=== PATIENT | female | born 1970 | race Caucasian/White ===

== ENCOUNTER → 2016-12-25 | Outpatient (CLI) | payer MEDICAID | END | disposition home or self-care (01) | LOC: RAD 09:59 | PROVIDERS: ATTEND Internal Medicine Gastroenterology | DX: Z51.89 Encounter for other specified aftercare (principal); R13.14 Dysphagia, pharyngoesophageal phase; R10.9 Unspecified abdominal pain; R14.0 Abdominal distension (gaseous); R11.0 Nausea; R11.10 Vomiting, unspecified; R05 Cough; F41.9 Anxiety disorder, unspecified; Q24.9 Congenital malformation of heart, unspecified; I34.0 Nonrheumatic mitral (valve) insufficiency; K56.1 Intussusception; D50.9 Iron deficiency anemia, unspecified | CPT/HCPCS: 74230 ==

== ENCOUNTER 2017-05-17 18:07 | Emergency (ER) | payer MEDICAID ==
[~2017-05-17] VITALS: Ht 167.6 cm; Wt 79.8 kg
[2017-05-17] MEDS ORDERED: SODIUM CHLORIDE FLUSH 10ML SYR IVF ONE (18:30)
[2017-05-17 18:45] LABS: HEMATOCRIT 47.4 % (34.6-47.8); HEMOGLOBIN 15.7 g/dL (11.7-16.4); WHITE BLOOD COUNT 8.7 x10^3/uL (3.4-10)
[2017-05-17 18:54] LABS: BLOOD UREA NITROGEN 14 mg/dL (7-18)
[2017-05-17 19:00] LABS: ASPARTATE AMINO TRANSFERASE 24 U/L (15-37); IS PT STATUS REG ER OR PRE ER? YES
[2017-05-17 20:18] VITALS: BP 157/86
== END 2017-05-17 21:26 | disposition home or self-care (01) ==
LOC: ED 21:20
DX: R07.89 Other chest pain (principal); F41.1 Generalized anxiety disorder
CPT/HCPCS: 36415; 71010; 80053; 83880; 84484; 85025; 93005; 99285

== ENCOUNTER 2020-12-02 13:50 | Outpatient (CLI) | payer MEDICAID ==
[2020-12-02] MEDS ORDERED: FURO-93 PO (14:34)
[2020-12-02] MEDS ORDERED: TRAZ50TA66 PO (14:34)
[2020-12-02] MEDS ORDERED: POTA20TA6 PO (14:34)
[2020-12-02] MEDS ORDERED: LOSA100T14 PO (14:34)
[2020-12-02] MEDS ORDERED: CARV12.52 PO (14:34)
[2020-12-02] MEDS ORDERED: ASPI81TA45 PO (14:34)
[2020-12-02] MEDS ORDERED: HYDR-826 PO (14:34)
[2020-12-02] MEDS ORDERED: BUSP5TAB2 PO (14:34)
[2020-12-02] MEDS ORDERED: TOLT2TAB4 PO (14:34)
[2020-12-02] MEDS ORDERED: DULO30CA2 PO (14:34)
[2020-12-02] MEDS ORDERED: FERR324T5 PO (14:34)
[2020-12-02 14:53] LABS: BASOPHILS % (AUTO) 1 % (0-1); EOSINOPHILS % (AUTO) 3 % (1-7); LYMPHOCYTES % (AUTO) 27 % (22-44); MEAN CORPUSCULAR HEMOGLOBIN 25.9 pg (27.0-34.8); MEAN CORPUSCULAR HGB CONC 32.7 g/dL (32.4-35.8); MEAN PLATELET VOLUME 9.1 fL (7.4-10.4); MONOCYTES % (AUTO) 6 % (2-9); NEUTROPHILS % (AUTO) 64 % (42-75); PLATELET COUNT 280 x10^3/uL (130-400); RED BLOOD COUNT 6.15 x10^6/uL (3.82-5.3); RED CELL DISTRIBUTION WIDTH 16.3 % (9.6-15.2)
[2020-12-02 14:54] LABS: MD NO
[2020-12-02 14:59] LABS: ALANINE AMINOTRANSFERASE 41 U/L (12-78); ANION GAP 8 mmol/L (5-15); CALCIUM 8.5 mg/dL (8.5-10.1); CHLORIDE 108 mmol/L (98-107)
[2020-12-02 15:01] LABS: ALKALINE PHOSPHATASE 140 U/L (45-117); BILIRUBIN,TOTAL 0.3 mg/dL (0.2-1.0); TOTAL PROTEIN 7.8 g/dL (6.4-8.2)
[2020-12-02 15:21] LABS: INTERNATIONAL NORMALIZED RATIO 1.01 (0.93-1.1); PROTHROMBIN TIME 10.8 Seconds (9.6-11.5)
== END 2020-12-02 23:59 | disposition home or self-care (01) ==
LOC: STAR 13:50
PROVIDERS: ATTEND Specialist
DX: Z01.818 Encounter for other preprocedural examination (principal); C51.9 Malignant neoplasm of vulva, unspecified; N81.6 Rectocele; N81.10 Cystocele, unspecified; Z20.822 Contact with and (suspected) exposure to COVID-19
CPT/HCPCS: 36415; 71046; 80053; 85025; 85610; 85730; 93005; U0003

== ENCOUNTER 2020-12-06 05:33 | Day surgery (SDC) | payer MEDICAID ==
[~2020-12-06] VITALS: Ht 167.6 cm; Wt 96.0 kg
[~2020-12-06 05:33] MED LIST: ASPI81TA45 PO; BUSP5TAB2 PO; CARV12.52 PO; DULO30CA2 PO; FERR324T5 PO; FURO-93 PO; HYDR-826 PO; LOSA100T14 PO; POTA20TA6 PO; TOLT2TAB4 PO; TRAZ50TA66 PO
[2020-12-06] MEDS ORDERED: CHLORHEXIDINE 15 ML UDC ONE (06:12)
[2020-12-06] MEDS ORDERED: LACTATED RINGERS 1,000 ML IV SCH (06:30)
[2020-12-06] MEDS ORDERED: CHLORHEXIDINE 15 ML UDC MM ONE (06:30)
[2020-12-06] MEDS ORDERED: CEFOTETAN PMX 2GM/50ML 50 ML IVPB ONE (06:30)
[2020-12-06 06:37] VITALS: BP 136/89
[2020-12-06] MEDS ORDERED: LURA60TA PO (06:37)
[2020-12-06] MEDS ORDERED: MULT-658 PO (06:37)
[2020-12-06] MEDS ORDERED: BUPIVACAINE/PF 0.25% ONE (06:49)
[2020-12-06] MEDS ORDERED: EPINEPHRINE 1 MG/ML, 1ML ONE (06:49)
[2020-12-06] MEDS ORDERED: MIDAZOLAM 1 MG/ML, 2ML ONE (07:34)
[2020-12-06] MEDS ORDERED: FENTANYL PF 250 MCG/5ML ONE (07:34)
[2020-12-06 07:50] LABS: AMPHETAMINE SCREEN, URINE Positive (Negative); BARBITURATE SCREEN, URINE Negative (Negative); BENZODIAZEPINE SCREEN, URINE Negative (Negative); CANNABINOID SCREEN, URINE Negative (Negative); COCAINE SCREEN, URINE Negative (Negative); METHADONE SCREEN, URINE Negative (Negative); OPIATE SCREEN, URINE Negative (Negative)
[2020-12-06] MEDS ORDERED: PROMETHAZINE 25 MG/ML, 1ML IVPush PRN (08:00)
[2020-12-06] MEDS ORDERED: MEPERIDINE/PF 25MG/0.5ML IVPush PRN (08:00)
[2020-12-06] MEDS ORDERED: OXYcodone 5 MG/5 ML ORAL.SOL UDC PO PRN (08:00)
[2020-12-06] MEDS ORDERED: hydrALAzine 20 MG/ML, 1ML IV PRN (08:00)
[2020-12-06] MEDS ORDERED: LORazepam 2 MG/ML, 1ML IVPush PRN (08:00)
[2020-12-06] MEDS ORDERED: ALBUTEROL SULFATE 2.5 MG/3 ML NPPB PRN (08:00)
[2020-12-06] MEDS ORDERED: HYDROmorphone 1 MG/ML, 1ML INJ IVPush PRN (08:00)
[2020-12-06] MEDS ORDERED: LABETALOL 5MG/ML, 20ML IV PRN (08:00)
[2020-12-06] MEDS ORDERED: DEXAMETHASONE 4 MG/ML, 1ML ONE (08:51)
[2020-12-06] MEDS ORDERED: ONDANSETRON 2MG/ML, 2ML ONE (08:51)
[2020-12-06] MEDS ORDERED: CEFAZOLIN 1,000 MG ONE (08:51)
[2020-12-06] MEDS ORDERED: KETOROLAC 30 MG/1 ML ONE (08:51)
[2020-12-06] MEDS ORDERED: PROPOFOL 10 MG/ML, 20ML ONE (08:51)
[2020-12-06] MEDS ORDERED: GLYCOPYRROLATE 0.2MG/1ML, 5ML ONE (08:51)
[2020-12-06] MEDS ORDERED: LIDOCAINE-MPF 2% ,5ML ONE (08:51)
[2020-12-06] MEDS ORDERED: ROCURONIUM 10MG/ML,5ML ONE ×2 (08:51)
[2020-12-06] MEDS ORDERED: NEOSTIGMINE 1 MG/ML, 10ML ONE (08:51)
[2020-12-06] MEDS ORDERED: INDIGO CARMINE 0.8%, 5ML ONE ×2 (09:07→11:15)
[2020-12-06] MEDS ORDERED: FENTANYL PF 100 MCG/2ML ONE ×4 (10:17→12:57)
[2020-12-06] MEDS ORDERED: OXYcodone 5 MG/5 ML ORAL.SOL UDC ONE (12:57)
[2020-12-06] MEDS: FENTANYL PF 100 MCG/2ML IV PRN ×2 (12:58→13:09)
[2020-12-06] MEDS ORDERED: HYDROmorphone 1 MG/ML, 1ML INJ ONE (13:10)
== END 2020-12-06 17:00 | disposition home or self-care (01) ==
LOC: OUT 05:33
PROVIDERS: ATTEND Specialist
DX: N99.3 Prolapse of vaginal vault after hysterectomy (principal); N39.3 Stress incontinence (female) (male); I11.0 Hypertensive heart disease with heart failure; I50.9 Heart failure, unspecified; M79.7 Fibromyalgia; E78.5 Hyperlipidemia, unspecified; F41.9 Anxiety disorder, unspecified; F32.9 Major depressive disorder, single episode, unspecified; Z79.82 Long term (current) use of aspirin; Z79.899 Other long term (current) drug therapy; Z88.8 Allergy status to other drugs, medicaments and biological substances; Z90.49 Acquired absence of other specified parts of digestive tract
CPT/HCPCS: 36415; 51990; 57425; 58661; 80307; 86850; 86870; 86900; 86902; 86922; 88302; C1781; J0171; J1100; J1170; J1885; J2250; J2405; J2704; J2710; J3010; J7120; S2900; 86923; J0690

== ENCOUNTER 2020-12-09 17:51 | Emergency (ER) | payer MEDICAID ==
[~2020-12-09] VITALS: Ht 170.2 cm; Wt 99.0 kg
[~2020-12-09 17:51] MED LIST changes: +LURA60TA PO; +MULT-658 PO
[2020-12-09 19:27] LABS: MICROSCOPIC INDICATED
[2020-12-09] MEDS ORDERED: CEFDINIR 300 MG CAPSULE PO ONE (20:30)
[2020-12-09] MEDS ORDERED: CEFDINIR 300 MG CAPSULE ONE (20:35)
[2020-12-09 20:41] VITALS: BP 190/93
--- NOTE | 2020-12-09 20:46 | NUR ---
Meds admin per nov. Discharge instructions given. All questions and concerns addressed. Patient ambulatory with a steady gait. Belongings with patient.
== END 2020-12-09 20:47 | disposition home or self-care (01) ==
LOC: ED 19:45
DX: T83.091A Other mechanical complication of indwelling urethral catheter, initial encounter (principal); N30.00 Acute cystitis without hematuria; I10 Essential (primary) hypertension
CPT/HCPCS: 51702; 81001; 87086; 99284